=== PATIENT | male | born 1935 | race Caucasian/White ===

== ENCOUNTER 2016-09-23 08:12 | Observation (INO) | payer OTHER ==
[~2016-09-23] VITALS: Ht 182.9 cm; Wt 89.5 kg
[2016-09-23 09:11] LABS: EOSINOPHIL COUNT 0.4 K/uL (0-0.3); HEMATOCRIT 40.8 % (38.0-50.0); IMMATURE GRANULOCYTE (%) 0.4 % (0.0-0.7); INSTRUMENT ABS NEUTROPHIL CT 5.6 K/uL; LYMPHOCYTE COUNT 1.6 K/uL (1.0-2.8); MCH 31.2 PG (29.0-34.0); MCHC 34.6 G/DL (30.0-36.0); MCV 90.3 FL (86-99); MEAN PLAT.VOLUME 9.7 uM^3 (9.0-12.4); MONOCYTE (%) 6.9 % (3-12); MONOCYTE COUNT 0.6 K/uL (0-0.8); NEUTROPHIL (%) 67.9 % (45-76); NEUTROPHIL COUNT 5.6 K/uL (1.8-6.4); PLATELET COUNT 227 K/uL (156-360); RBC DIS.WIDTH-CV 11.7 % (11.8-14.6); RBC DIS.WIDTH-SD 38.5 % (39-53); RED BLOOD COUNT 4.52 M/uL (4.00-5.50); WHITE BLOOD COUNT 8.2 K/uL (4.1-10.2)
[2016-09-23 09:25] LABS: CHLORIDE 105 mEq/L (99-109); POTASSIUM 3.8 mEq/L (3.7-5.4); SODIUM 138 mEq/L (136-147)
[2016-09-23 09:26] LABS: GLUCOSE 155 mg/dL (70-99)
[2016-09-23 09:28] LABS: ANION GAP 11 MEQ/L (2-14)
[2016-09-23 09:30] LABS: GFR ESTIMATE (CALCULATED) 56 mL/min/
[2016-09-23 09:31] LABS: UREA NITROGEN (BUN) 21 mg/dL (9-23)
[2016-09-23] MEDS ORDERED: OXYCODONE-APAP1 EACH PO (09:32)
[2016-09-23] MEDS ORDERED: MAG-OXIDE400 MG PO (09:33)
[2016-09-23] MEDS ORDERED: METFORMIN HCL850 MG PO (09:33)
[2016-09-23] MEDS ORDERED: TAMSULOSIN HCL0.4 MG PO (09:34)
[2016-09-23] MEDS ORDERED: LOSARTAN-HCTZ1 EAC1 PO (09:36)
[2016-09-23] MEDS ORDERED: INDERAL10 MG PO (09:36)
[2016-09-23] MEDS ORDERED: DAILY VITAMIN1 EAC4 PO (09:37)
[2016-09-23] MEDS ORDERED: ASPIR 8181 M1 PO (09:38)
[2016-09-23 11:48] LABS: POINT-OF-CARE METER ID UU14100415
[2016-09-23] MEDS ORDERED: GLIPIZIDE10 MG PO (12:32)
[2016-09-23] MEDS ORDERED: VITAMIN B-12500 MC5 SL (12:32)
[2016-09-23 15:56] LABS: POINT-OF-CARE METER ID UU13113700
[2016-09-23 15:57] VITALS: BP 149/74
[2016-09-23 20:00] VITALS: BP 112/59
[2016-09-23 21:24] LABS: POINT-OF-CARE METER ID UU13113831
[2016-09-24] VITALS: BP 128/68
[2016-09-24 04:15] VITALS: BP 147/70
[2016-09-24 06:39] LABS: HEMATOCRIT 36.9 % (38.0-50.0); MCH 32.1 PG (29.0-34.0); MCHC 34.1 G/DL (30.0-36.0); MCV 93.9 FL (86-99); MEAN PLAT.VOLUME 9.9 uM^3 (9.0-12.4); PLATELET COUNT 191 K/uL (156-360); RBC DIS.WIDTH-CV 11.9 % (11.8-14.6); RBC DIS.WIDTH-SD 41.1 % (39-53); RED BLOOD COUNT 3.93 M/uL (4.00-5.50); WHITE BLOOD COUNT 5.8 K/uL (4.1-10.2)
[2016-09-24 07:53] LABS: ANION GAP 7 MEQ/L (2-14); CHLORIDE 104 MEQ/L (99-109); GFR ESTIMATE (CALCULATED) 44 mL/min/; GLUCOSE 127 mg/dL (70-99); POTASSIUM 4.1 MEQ/L (3.7-5.4); SAMPLE HEMOLYSIS CHECK 0; SAMPLE ICTERIC CHECK 0; SAMPLE LIPEMIA CHECK 0; SODIUM 141 MEQ/L (136-147); UREA NITROGEN (BUN) 21 mg/dL (9-23)
[2016-09-24 08:02] VITALS: BP 151/57
[2016-09-24 08:21] LABS: POINT-OF-CARE METER ID UU13113831
[2016-09-24 11:48] VITALS: BP 137/69
== END 2016-09-24 12:28 | disposition home or self-care (01) ==
LOC: EME 08:12 → 5WEST 14:05 → EDOF 14:05 → 5WEST 15:30
PROVIDERS: Emergency Medicine; Family Medicine; Hospitalist
DX: R42 Dizziness and giddiness (principal); R51 Headache; E86.0 Dehydration; E11.9 Type 2 diabetes mellitus without complications; I10 Essential (primary) hypertension; I25.2 Old myocardial infarction; I25.10 Atherosclerotic heart disease of native coronary artery without angina pectoris; Z95.5 Presence of coronary angioplasty implant and graft
CPT/HCPCS: 70450; 80048; 82948; 85025; 85027; 99281; 99285; G0378; J1644; J2270; J2405; J7030